=== PATIENT | male | born 1950 | race Caucasian/White ===

== ENCOUNTER 2016-07-03 11:48 | Emergency (ER) | payer OTHER ==
[~2016-07-03] VITALS: Ht 175.3 cm; Wt 88.9 kg
[~2016-07-03 11:48] MED LIST: APRESOLINE25 MG PO; ATENOLOL25 M1 NG; ATENOLOL50 MG PO; AVELOX400 MG PO; BENTYL20 MG PO; COLACE100 MG PO; ENDOCET 5-3251 EACH PO; ERGOCALCIF50000 UNIT PO; GLUCOPHAGE500 MG PO; Hydrodiuril,Oretic,E PO; LEVOTHYROXINE50 MCG PO; LISINOPRIL5 MG PO; LYRICA150 MG PO; NEXIUM40 MG PO; OXYCODONE HCL15 MG PO; OXYCONTIN40 MG PO; TIZANIDINE HCL4 MG PO; TRAZODONE HCL50 MG PO; VOLTAREN 1% GE100 GM TP; ZOFRAN8 MG PO
[2016-07-03 12:52] LABS: EOSINOPHIL (%) 5.9 % (0-5); EOSINOPHIL COUNT 0.3 K/uL (0-0.3); HEMATOCRIT 34.5 % (38.0-50.0); IMMATURE GRANULOCYTE (%) 0.4 % (0.0-0.7); INSTRUMENT ABS NEUTROPHIL CT 1.6 K/uL; LYMPHOCYTE COUNT 2.4 K/uL (1.0-2.8); MCH 30.5 PG (29.0-34.0); MCHC 32.8 G/DL (30.0-36.0); MCV 93.2 FL (86-99); MEAN PLAT.VOLUME 10.6 uM^3 (9.0-12.4); MONOCYTE (%) 8.3 % (3-12); MONOCYTE COUNT 0.4 K/uL (0-0.8); NEUTROPHIL (%) 33.7 % (45-76); NEUTROPHIL COUNT 1.6 K/uL (1.8-6.4); PLATELET COUNT 143 K/uL (156-360); RBC DIS.WIDTH-CV 14.6 % (11.8-14.6); RBC DIS.WIDTH-SD 50.4 % (39-53); WHITE BLOOD COUNT 4.7 K/uL (4.1-10.2)
[2016-07-03 12:58] LABS: CHLORIDE 107 mEq/L (99-109); POTASSIUM 4.5 mEq/L (3.7-5.4); SODIUM 142 mEq/L (136-147)
[2016-07-03 12:59] LABS: MAGNESIUM 1.4 mg/dL (1.3-2.7)
[2016-07-03 13:00] LABS: GLUCOSE 97 mg/dL (70-99)
[2016-07-03 13:01] LABS: ANION GAP 9 MEQ/L (2-14)
[2016-07-03 13:02] LABS: TOTAL BILIRUBIN 0.7 mg/dL (0.0-1.0)
[2016-07-03 13:04] LABS: ALKALINE PHOSPHATASE 61 IU/L (3-129); GFR ESTIMATE (CALCULATED) > 59 mL/min/
[2016-07-03 13:05] LABS: UREA NITROGEN (BUN) 20 mg/dL (9-23)
[2016-07-03 16:20] VITALS: BP 155/81
== END 2016-07-03 16:27 | disposition left against medical advice (07) ==
LOC: EME 11:48
PROVIDERS: Emergency Medicine
DX: I44.1 Atrioventricular block, second degree (principal); I10 Essential (primary) hypertension; E11.9 Type 2 diabetes mellitus without complications; G89.29 Other chronic pain
CPT/HCPCS: 71010; 80053; 83735; 85025; 93005; 99281; 99285